=== PATIENT | female | born 1945 | race African-American/Black ===

== ENCOUNTER 2019-09-13 12:33 | Inpatient (IN) | payer OTHER ==
[2019-09-13 13:56] LABS: Absolute Lymphocytes (CBC) 0.7 K/uL (0.7-4.9); Basophils % 0.5 % (0-1.3); Hematocrit 39.5 % (36.0-45.0); Lymphocytes % 25.4 % (15.3-44.8); MPV 8.4 fL (7.6-11.3); RBC Red Blood Cell Count 4.29 M/uL (3.86-4.86)
--- NOTE | 2019-09-13 13:57 | RAD REPORT ---
EXAM DESCRIPTION: CT - Head Brain Wo Cont - 09/13/2019 1:50 pm CLINICAL HISTORY: WEAKNESS Headache, drowsiness COMPARISON: No comparisons TECHNIQUE: All CT scans are performed using dose optimization technique as appropriate and may inclu de automated exposure control or mA/KV adjustment according to patient size. FINDINGS: No intracranial hemorrhage, hydrocephalus or extra-axial fluid collection.Mild generalized brain atrophy is present with mild periventricular and deep white matter chronic microvascular ische angela changes.No areas of brain edema or evidence of midline shift. The paranasal sinuses and mastoids are clear. The calvarium is intact. IMPRESSION: No acute intracranial abnormality.
--- NOTE | 2019-09-13 13:58 | RAD REPORT ---
EXAM DESCRIPTION: RAD - Chest Single View - 09/13/2019 1:52 pm CLINICAL HISTORY: COUGH Chest pain. COMPARISON: CHEST SINGLE VIEW dated 06/04/2008; CT ABD PELVIS W CONTRAST dated 12/01/2013; ABDOMEN W C ONTRAST dated 11/01/2014 FINDINGS: Portable technique limits examination quality. The lungs are emphysematous but grossly clear. The heart is normal in size. No displaced fractures. IMPRESSION: No acute intrathoracic process suspected.
[2019-09-13] MEDS ORDERED: NA CHLORIDE 0.9% 500 ML ONE (14:11)
[2019-09-13] MEDS ORDERED: THIAMINE 200 MG/2 ML INJ ONE (14:11)
[2019-09-13 14:19] LABS: ALT/SGPT 26 U/L (12-78); AST/SGOT 35 U/L (15-37); Albumin 4.1 g/dL (3.4-5.0); Alkaline Phosphatase 66 U/L (45-117); BUN Blood Urea Nitrogen 13 mg/dL (7-18); Bicarbonate 30 mmol/L (21-32); Bilirubin Direct 0.2 mg/dL (0-0.2); Bilirubin Total 0.5 mg/dL (0.2-1.0); Glucose Level 89 mg/dL (74-106); Magnesium 2.3 mg/dL (1.8-2.4); NT PRO-BNP 131 pg/mL (<125); Potassium 3.7 mmol/L (3.5-5.1); Protein, Total 8.1 g/dL (6.4-8.2); Sodium Level 142 mmol/L (136-145); Thyroid Stimulating Hormone 0.643 uIU/mL (0.360-3.740); Troponin (Emerg Dept Use Only) < 0.02 ng/mL (0.0-0.045)
[2019-09-13 14:42] LABS: Protime INR 1.06
--- NOTE | 2019-09-13 15:04 | EDPHYS ---
Physician Documentation [facility] Name: Loreta Tavera Age: 73 yrs Sex: Female : 1945 Arrival Date: 09/13/2019 Time: 12:47 Bed 13 Private MD: ED Physician Eyad Chen HPI: 09/13 13:30 This 73 yrs old Black Female presents to ER via EMS with complaints of ams and confused.sha 13:30 The patient presents with confusion. Onset: The symptoms/episode began/occurred 2 sha day(s) ago. Possible causes: unknown. Associated signs and symptoms: The patient has no apparent associated signs or symptoms. Current symptoms: In the emergency department the patient's symptoms are unchanged from the initial presentation. Patient's baseline: unknown. The patient has not experienced similar symptoms in the past. Historical: - Allergies: 13:16 Unable to Assess; jl7 - Home Meds: 13:16 Unable to obtain [Active]; jl7 - PMHx: 13:16 Unable to obtain; jl7 - PSHx: 13:16 Unable to obtain; jl7 - Immunization history:: Adult Immunizations unknown. - Social history:: Smoking status: unknown. - Family history:: not pertinent. - Ebola Screening: : No symptoms or risks identified at this time. ROS: 13:30 Constitutional: Negative for fever, chills, and weight loss, Eyes: Negative for injury, sha pain, redness, and discharge, ENT: Negative for injury, pain, and discharge, Neck: Negative for injury, pain, and swelling, Cardiovascular: Negative for chest pain, palpitations, and edema, Respiratory: Negative for shortness of breath, cough, wheezing, and pleuritic chest pain, Abdomen/GI: Negative for abdominal pain, nausea, vomiting, diarrhea, and constipation, Back: Negative for injury and pain, : Negative for injury, bleeding, discharge, and swelling, MS/Extremity: Negative for injury and deformity, Skin: Negative for injury, rash, and discoloration, Psych: Negative for depression, anxiety, suicide ideation, homicidal ideation, and hallucinations, Allergy/Immunology: Negative for hives, rash, and allergies, Endocrine: Negative for neck swelling, polydipsia, polyuria, polyphagia, and marked weight changes, Hematologic/Lymphatic: Negative for swollen nodes, abnormal bleeding, and unusual bruising. 13:30 Neuro: Positive for altered mental status, weakness. Exam: 13:30 Constitutional: This is a well developed, well nourished patient who is awake, alert, sha and in no acute distress. Head/Face: Normocephalic, atraumatic. Eyes: Pupils equal round and reactive to light, extra-ocular motions intact. Lids and lashes normal. Conjunctiva and sclera are non-icteric and not injected. Cornea within normal limits. Periorbital areas with no swelling, redness, or edema. ENT: Nares patent. No nasal discharge, no septal abnormalities noted. Tympanic membranes are normal and external auditory canals are clear. Oropharynx with no redness, swelling, or masses, exudates, or evidence of obstruction, uvula midline. Mucous membranes moist. Neck: Trachea midline, no thyromegaly or masses palpated, and no cervical lymphadenopathy. Supple, full range of motion without nuchal rigidity, or vertebral point tenderness. No Meningismus. Chest/axilla: Normal chest wall appearance and motion. Nontender with no deformity. No lesions are appreciated. Cardiovascular: Regular rate and rhythm with a normal S1 and S2. No gallops, murmurs, or rubs. Normal PMI, no JVD. No pulse deficits. Respiratory: Lungs have equal breath sounds bilaterally, clear to auscultation and percussion. No rales, rhonchi or wheezes noted. No increased work of breathing, no retractions or nasal flaring. Abdomen/GI: Soft, non-tender, with normal bowel sounds. No distension or tympany. No guarding or rebound. No evidence of tenderness throughout. Back: No spinal tenderness. No costovertebral tenderness. Full range of motion. Skin: Warm, dry with normal turgor. Normal color with no rashes, no lesions, and no evidence of cellulitis. MS/ Extremity: Pulses equal, no cyanosis. Neurovascular intact. Full, normal range of motion. Psych: Awake, alert, with orientation to person, place and time. Behavior, mood, and affect are within normal limits. 13:30 Neuro: Orientation: to person, Not oriented to place, time, situation, Mentation: appropriate for stated age, no acute changes, responsive to voice Cranial nerves: is grossly normal based on the patient's age, no acute changes, Cerebellar function: is grossly normal, is grossly normal based on the patient's age, no acute changes, Motor: is normal, is grossly normal based on the patient's age, no acute changes, moves all fours, Sensation: no obvious gross deficits, appropriate no acute changes, Gait: not tested. seizure activity, is not displayed by the patient. Vital Signs: 12:50 BP 155 / 96; Pulse 61; Resp 19 S; Temp 97.4(O); Pulse Ox 98% on R/A; Pain 0/10; jl7 17:05 BP 130 / 78; Pulse 52; Resp 16; Temp 97.9(A); Pulse Ox 100% on R/A; mh5 18:45 BP 149 / 75; Pulse 62; Resp 16; Pulse Ox 100% on R/A; mh5 19:15 BP 154 / 78; Pulse 52; Resp 16; Pulse Ox 100% on R/A; jb4 21:00 BP 145 / 80; Pulse 60; Resp 16; Pulse Ox 100% on R/A; jb4 MDM: 12:49 Patient medically screened. [facility] 13:36 Data reviewed: vital signs, nurses notes, lab test result(s), EKG, radiologic studies, [facility] CT scan, plain films. 09/13 13:28 Order name: Basic Metabolic Panel; Complete Time: 15:01 [facility] 09/13 13:28 Order name: CBC with Diff [facility] 09/13 13:28 Order name: LFT's; Complete Time: 15:01 [facility] 09/13 13:28 Order name: Magnesium; Complete Time: 15:01 [facility] 09/13 13:28 Order name: NT PRO-BNP; Complete Time: 15:01 [facility] 09/13 13:28 Order name: PT-INR; Complete Time: 15:01 [facility] 09/13 13:28 Order name: Troponin (emerg Dept Use Only); Complete Time: 15:01 [facility] 09/13 13:28 Order name: UDS; Complete Time: 18:50 sha 09/13 13:28 Order name: TSH; Complete Time: 15:01 [facility] 09/13 13:28 Order name: ETOH Level; Complete Time: 15:01 [facility] 09/13 15:48 Order name: Urine Dipstick--Ancillary (enter results); Complete Time: 18:50 bd 09/13 19:44 Order name: Manual Differential EDMS 09/13 19:46 Order name: CBC with Automated Diff EDMS 09/13 19:46 Order name: CBC with Automated Diff EDMS 09/13 13:28 Order name: XRAY Chest (1 view); Complete Time: 15:01 [facility] 09/13 13:28 Order name: EKG; Complete Time: 13:30 [facility] 09/13 13:28 Order name: CT Head Brain wo Cont; Complete Time: 15:01 [facility] 09/13 14:57 Order name: Diet Soft: Pt is requesting fruit on tray/ applesauce; Complete Time: 14:57 09/13 16:38 Order name: Diet Regular; Complete Time: 16:39 5 09/13 19:46 Order name: CONS Pharmacy Consult EDPR 09/13 19:46 Order name: NPO EDMS 09/13 19:46 Order name: Comprehensive Metabolic Panel EDMS 09/13 19:46 Order name: Comprehensive Metabolic Panel EDMS 09/13 19:46 Order name: Lipid Profile EDPR 09/13 19:47 Order name: Lipid Profile EDPR 09/13 13:28 Order name: Cardiac monitoring; Complete Time: 15:34 [facility] 09/13 13:28 Order name: EKG - Nurse/Tech; Complete Time: 16:37 [facility] 09/13 13:28 Order name: IV Saline Lock; Complete Time: 15:34 [facility] 09/13 13:28 Order name: Labs collected and sent; Complete Time: 15:33 [facility] 09/13 13:28 Order name: O2 Per Protocol; Complete Time: 15:33 [facility] 09/13 13:28 Order name: O2 Sat Monitoring; Complete Time: 15:33 [facility] Administered Medications: 14:56 Drug: NS 0.9% 500 ml Route: IV; Rate: bolus; Site: right antecubital; ss 14:58 Drug: Thiamine 100 mg Route: IV; Rate: bolus; Site: right antecubital; jl7 15:00 Drug: Ativan 1 mg Route: IVP; Site: right antecubital; jl7 15:20 Follow up: Response: No adverse reaction; No change in condition jl7 15:20 Drug: Ativan 1 mg Route: IVP; Site: right antecubital; jl7 15:35 Follow up: Response: No adverse reaction; Marked relief of symptoms jl7 21:04 Not Given (Physician Discretion): Sylvia Bonilla mg IM once jb4 Disposition: 09/13/19 18:53 Hospitalization ordered by Antione Diane for Inpatient Admission. Preliminary diagnosis are Dementia in other diseases classified elsewhere, Altered mental status, unspecified, Weakness. - Bed requested for Telemetry/MedSurg (Inpatient). - Status is Inpatient Admission. jb4 - Condition is Stable. - Problem is new. - Symptoms have improved. UTI on Admission? No Signatures: Dispatcher [employer] EDPR Anuradha Recio RN RN mw Anderson, Corey, MD MD cha Smirch, Shelby, RN RN Yaakov Castellanos RN RN jb4 Manav Hay RN RN jl7 Corrections: (The following items were deleted from the chart) 18:51 15:04 09/13/2019 15:04 Transfer ordered to [facility]. Diagnosis is sha Unspecified psychosis not due to a substance or known physiological condition; Altered mental status, unspecified. Reason for transfer: Higher level of care. Accepting physician is to [facility]. Condition is Fair. Problem is new. Symptoms have improved. sha 19:49 18:53 Hospitalization Ordered by Antione Diane MD for Inpatient Admission. Preliminary diagnosis is Dementia in other diseases classified elsewhere; Altered mental status, unspecified; Weakness. Bed requested for Telemetry/MedSurg (Inpatient). Status is Inpatient Admission. Condition is Stable. Problem is new. Symptoms have improved. UTI on Admission? No. sha 21:04 19:49 09/13/2019 18:53 Hospitalization Ordered by Antione Diane MD for Inpatient jb4 Admission. Preliminary diagnosis is Dementia in other diseases classified elsewhere; Altered mental status, unspecified; Weakness. Bed requested for Telemetry/MedSurg (Inpatient). Status is Inpatient Admission. Condition is Stable. Problem is new. Symptoms have improved. UTI on Admission? No. mw
--- NOTE | 2019-09-13 15:04 | ER ---
Nurse's Notes [facility] Name: Loreta Tavera Age: 73 yrs Sex: Female : 1945 Arrival Date: 09/13/2019 Time: 12:47 Bed 13 Private MD: Diagnosis: Dementia in other diseases classified elsewhere;Altered mental status, unspecified;Weakness Presentation: 09/13 12:50 Presenting complaint: EMS states: Her Apartment complex called APS because pt appeared jl7 to be declining over the last several weeks. Paulina Sampson from [place] [facility] called EMS because pt was walking around with a can of food but was unable to open the can. All of the doors in the pts apartment were locked and the apartment was malodorous, smelled like cat urine and there was a cat in the cat liter box. Pt is oriented to self only, answering with inappropriate answers. Transition of care: patient was not received from another setting of care. Onset of symptoms is unknown. Risk Assessment: Do you want to hurt yourself or someone else? Patient reports no desire to harm self or others. Initial Sepsis Screen: Does the patient meet any 2 criteria? No. Patient's initial sepsis screen is negative. Does the patient have a suspected source of infection? No. Patient's initial sepsis screen is negative. Care prior to arrival: Glucose check: 103. 12:50 Method Of Arrival: EMS: [facility] 12:50 Acuity: STACEY 2 jl7 Triage Assessment: 12:50 General: Appears in no apparent distress. uncomfortable, unkempt, malnourished, jl7 Behavior is cooperative, anxious. Pain: Denies pain. EENT: Oral mucosa is dry. Neuro: Level of Consciousness is awake, alert, obeys commands, confused, Oriented to person, Speech is normal, Facial symmetry appears normal. Cardiovascular: Patient's skin is warm and dry. Respiratory: Airway is patent Respiratory effort is even, unlabored, Respiratory pattern is regular, symmetrical. Derm: Skin is dry, Skin is normal, Skin temperature is warm. Historical: - Allergies: 13:16 Unable to Assess; jl7 - Home Meds: 13:16 Unable to obtain [Active]; jl7 - PMHx: 13:16 Unable to obtain; jl7 - PSHx: 13:16 Unable to obtain; jl7 - Immunization history:: Adult Immunizations unknown. - Social history:: Smoking status: unknown. - Family history:: not pertinent. - Ebola Screening: : No symptoms or risks identified at this time. Screenin:00 Abuse screen: Unable to obtain. Nutritional screening: Unable to obtain, Pt unable to jl7 state when her last meal was. Tuberculosis screening: unable to obtain. Fall Risk Secondary diagnosis (15 points) dementia, IV access (20 points). Ambulatory Aid- None/Bed Rest/Nurse Assist (0 pts). Gait- Normal/Bed Rest/Wheelchair (0 pts) Mental Status- Overestimates/Forgets Limitations (15 pts.). Total Terrell Fall Scale indicates High Risk Score (45 or more points). Fall prevention measures have been instituted. Side Rails Up X 2 Placed Close to Nursing Station Frequent Obs/Assessments Occuring As available patient and family educated on Fall Prevention Program and Strategies. Assessment: 13:06 Reassessment: Paulina Sampson from APS reports pt's apartment complex called her jl7 reporting pt has always been skinny but she is really skinny now. They did an inspection 2 months ago and her apartment looked ok, now there are fruit flies and the place is really bad. APS case # [id number] [phone] [id number] 1 2 2. 13:15 Reassessment: Paulina Sampson with APS [phone]. jl7 15:00 Reassessment: Pt appears agitated and confused, refusing to go into her room, ERD jl7 notified, see MAR for orders. 15:46 Reassessment: Spoke with Elidia Liang, Pts sister who states she is unable to come up ss here at this time as she is taking care of personal business, and is unsure as to when she will be able to, but will try to get ahold of her daughter and send her up here to be with patient. Awaiting phone call back at this time. 17:32 Reassessment: Spoke with sisterElidia who states she will be here within 25 minutes ss after she is finished eating dinner. Sister reports that patient has a history of dementia. 17:44 Reassessment: [facility] staff member at bedside to evaluate patient at bedside at this time. awaiting for family member to arrive. 18:30 Reassessment: Sister Elidia is here at bedside. ss 18:44 Reassessment: Point of contact: [phone]. ss 19:10 Reassessment: Patient appears in no apparent distress at this time. Patient and/or jb4 family updated on plan of care and expected duration. Pain level reassessed. Pt's sister is at the bedside. PT remains alert and oriented to self. Continues to answer questions inappropriately. 19:56 Reassessment: Patient appears in no apparent distress at this time. No changes from jb4 previously documented assessment. Patient and/or family updated on plan of care and expected duration. Pain level reassessed. 21:00 Reassessment: Patient appears in no apparent distress at this time. Patient and/or jb4 family updated on plan of care and expected duration. Pain level reassessed. PT resting in bed with eyes closed, respirations even and unlabored. No s/s of distress noted. Vital Signs: 12:50 BP 155 / 96; Pulse 61; Resp 19 S; Temp 97.4(O); Pulse Ox 98% on R/A; Pain 0/10; jl7 17:05 BP 130 / 78; Pulse 52; Resp 16; Temp 97.9(A); Pulse Ox 100% on R/A; mh5 18:45 BP 149 / 75; Pulse 62; Resp 16; Pulse Ox 100% on R/A; mh5 19:15 BP 154 / 78; Pulse 52; Resp 16; Pulse Ox 100% on R/A; jb4 21:00 BP 145 / 80; Pulse 60; Resp 16; Pulse Ox 100% on R/A; jb4 ED Course: 12:47 Patient arrived in ED. jl7 12:49 Eyad Chen MD is Attending Physician. [facility] 12:50 Arm band placed on right wrist. jl7 12:55 Triage completed. jl7 13:00 Safety checks: Items removed: yes. Door open/sign placed on door: yes. Family/friend mh5 present: no. Sitter present: Yes. 13:00 Patient has correct armband on for positive identification. Placed in gown. Bed in low mh5 position. Side rails up X2. Warm blanket given. 13:06 Manav Hay RN is Primary Nurse. 7 13:15 Safety checks: Items removed: yes. Door open/sign placed on door: yes. Family/friend mh5 present: no. Sitter present: Yes. 13:30 Safety checks: Items removed: yes. Door open/sign placed on door: yes. Family/friend mh5 present: no. Sitter present: Yes. 13:41 Inserted saline lock: 22 gauge in right antecubital area, using aseptic technique. ss ,using aseptic technique. Insertion by TOAN Velasquez Blood collected. 13:45 Safety checks: Items removed: yes. Door open/sign placed on door: yes. Family/friend mh5 present: no. Sitter present: Yes. 13:51 CT Head Brain wo Cont In Process Unspecified. EDMS 13:53 XRAY Chest (1 view) In Process Unspecified. EDMS 14:00 Safety checks: Items removed: yes. Door open/sign placed on door: yes. Family/friend mh5 present: no. Sitter present: Yes. 14:15 Safety checks: Items removed: yes. Door open/sign placed on door: yes. Family/friend mh5 present: no. Sitter present: Yes. 14:30 Safety checks: Items removed: yes. Door open/sign placed on door: yes. Family/friend mh5 present: no. Sitter present: Yes. 14:45 Safety checks: Items removed: yes. Door open/sign placed on door: yes. Family/friend mh5 present: no. Sitter present: Yes. 15:00 Safety checks: Items removed: yes. Door open/sign placed on door: yes. Family/friend mh5 present: no. Sitter present: Yes. 15:15 Safety checks: Items removed: yes. Door open/sign placed on door: yes. Family/friend mh5 present: no. Sitter present: Yes. 15:30 Safety checks: Items removed: yes. Door open/sign placed on door: yes. Family/friend mh5 present: no. Sitter present: Yes. 15:45 Safety checks: Items removed: yes. Door open/sign placed on door: yes. Family/friend mh5 present: yes. Sitter present: Yes. Diet: Patient given snack. 16:00 Safety checks: Items removed: yes. Door open/sign placed on door: yes. Family/friend mh5 present: no. Sitter present: Yes. 16:15 Safety checks: Items removed: yes. Door open/sign placed on door: yes. Family/friend mh5 present: no. Sitter present: Yes. 16:30 Safety checks: Items removed: yes. Door open/sign placed on door: yes. Family/friend mh5 present: no. Sitter present: Yes. 16:35 Urine collected: straight cath specimen, clear, EKG done. Initial lab(s) drawn, by ED 5 staff, sent to lab. Inserted saline lock: 22 gauge in right upper arm, using aseptic technique. Blood collected. 16:45 Safety checks: Items removed: yes. Door open/sign placed on door: yes. Family/friend mh5 present: no. Sitter present: Yes. 17:08 faxed chart to [facility]. 18:51 Antione Diane MD is Hospitalizing Provider. [facility] 21:00 No provider procedures requiring assistance completed. Patient admitted, IV remains in jb4 place. Administered Medications: 14:56 Drug: NS 0.9% 500 ml Route: IV; Rate: bolus; Site: right antecubital; ss 14:58 Drug: Thiamine 100 mg Route: IV; Rate: bolus; Site: right antecubital; jl7 15:00 Drug: Ativan 1 mg Route: IVP; Site: right antecubital; jl7 15:20 Follow up: Response: No adverse reaction; No change in condition jl7 15:20 Drug: Ativan 1 mg Route: IVP; Site: right antecubital; jl7 15:35 Follow up: Response: No adverse reaction; Marked relief of symptoms jl7 21:04 Not Given (Physician Discretion): Geodon 20 mg IM once jb4 Outcome: 15:04 ER care complete, transfer ordered by . sha 18:53 Decision to Hospitalize by Provider. [facility] 21:00 Admitted to Tele accompanied by tech, via stretcher, room 402, with chart, Report jb4 called to TOAN Ponce 21:00 Condition: stable 21:00 Discharge instructions given to family, Instructed on the need for admit, Demonstrated understanding of instructions. 21:04 Patient left the ED. jb4 Signatures: Dispatcher [employer] EDMS Cinda Figueredo Corey, MD MD cha Smirch, Shelby, RN RN Yaakov Crockett RN RN jb Tiffany Herrera Jahala, RN RN jl7 Corrections: (The following items were deleted from the chart) 17:07 17:05 BP 130 / 78; Pulse 52bpm; Resp 16bpm; Pulse Ox 100% RA; Temp 99F; 5 5
[2019-09-13] MEDS ORDERED: LORazepam 2 MG/ML VIAL ONE (15:06)
[2019-09-13 15:36] LABS: Barbiturates NEGATIVE (NEGATIVE); Benzodiazepines NEGATIVE (NEGATIVE); Cocaine NEGATIVE (NEGATIVE); METHAMPHETAM NEGATIVE (NEGATIVE); Methadone NEGATIVE (NEGATIVE); Opiates NEGATIVE (NEGATIVE); Phencyclidine NEGATIVE (NEGATIVE); THC Cannibis NEGATIVE (NEGATIVE)
[2019-09-13 16:09] LABS: Urine Blood NEGATIVE (NEG); Urine Glucose NEGATIVE (NEG); Urine Protein NEGATIVE (NEG); Urine pH 6.5 (5.0-7.0)
[2019-09-13] MEDS ORDERED: MORPHINE 2 MG/ML SYR IV PRN (19:42)
[2019-09-13] MEDS ORDERED: ACETAMINOPHEN 500 MG TAB PO PRN (19:42)
[2019-09-13] MEDS ORDERED: ONDANSETRON 4 MG/2 ML VIAL IV PRN (19:42)
[2019-09-13 19:44] LABS: Blood Morphology Comment NOT SEEN (NOT SEEN); Platelet Estimate ADEQ
[2019-09-13] MEDS: NA CHLORIDE 0.9% 1,000 ML IV SCH (21:26)
[2019-09-13 23:08] VITALS: BMI 18.4
[2019-09-14 04:18] LABS: Absolute Lymphocytes (CBC) 1.1 K/uL (0.7-4.9); Basophils % 0.7 % (0-1.3); Hematocrit 37.1 % (36.0-45.0); Lymphocytes % 46.9 % (15.3-44.8); MPV 8.5 fL (7.6-11.3); RBC Red Blood Cell Count 4.02 M/uL (3.86-4.86)
[2019-09-14 04:59] LABS: ALT/SGPT 22 U/L (12-78); AST/SGOT 29 U/L (15-37); Albumin 3.3 g/dL (3.4-5.0); Alkaline Phosphatase 55 U/L (45-117); BUN Blood Urea Nitrogen 10 mg/dL (7-18); Bicarbonate 29 mmol/L (21-32); Bilirubin Total 0.6 mg/dL (0.2-1.0); Glucose Level 69 mg/dL (74-106); HDL Cholesterol 71 mg/dL (40-60); LDL Cholesterol, Calculated 84 (<130); Potassium 3.7 mmol/L (3.5-5.1); Protein, Total 6.6 g/dL (6.4-8.2); Sodium Level 143 mmol/L (136-145)
[2019-09-14] MEDS ORDERED: D50W 25 GM/50 ML SYRINGE/VIAL IV ONE (06:06)
--- NOTE | 2019-09-14 06:20 | EKG ---
Test Date: 2019-09-13 Test Time: 16:29:41 [employer] Sponger: KEISHA MEASUREMENT RESULTS: Intervals: Rate: 54 GA: 154 QRSD: 96 QT: 434 QTc: 411 Gable: P: 60 GA: 154 QRS: -27 T: 55 INTERPRETIVE STATEMENTS: Sinus bradycardia with occasional premature ventricular complexes Low voltage QRS Borderline ECG Compared to ECG 06/05/2008 05:52:36 Ventricular premature complex(es) now present Low QRS voltage now present Electronically Signed On 09-14-19 06:19:55 HOME APPRAISER by Jono Farrell
[2019-09-14] MEDS ORDERED: PNEUMOCOCCAL VACCINE 0.5 ML IMVAC ONE (08:00)
[2019-09-14] MEDS ORDERED: INFLUENZA VACCINE (for 3y+) 0.5 ML DOSE IMVAC ONE (08:00)
[2019-09-14] MEDS ORDERED: ALBUTEROL 2.5 MG/3 ML NEB SOL ONE (08:52)
[2019-09-14] MEDS: NA CHLORIDE 0.9% 1,000 ML IV SCH (09:20)
[2019-09-14] MEDS ORDERED: LORazepam 2 MG/ML VIAL IV ONE (11:36)
[2019-09-14] MEDS ORDERED: LORazepam 2 MG/ML VIAL IM ONE (11:53)
[2019-09-14] MEDS ORDERED: QUETIAPINE 25 MG TAB PO SCH (14:00)
[2019-09-14] MEDS: QUETIAPINE 25 MG TAB PO SCH ×2 (15:35→20:08)
--- NOTE | 2019-09-14 15:53 | P.HP ---
Certification for Inpatient Patient admitted to: Observation With expected LOS: <2 Midnights Patient will require the following post-hospital care: None Practitioner: I am a practitioner with admitting privileges, knowledge of patient current condition, hospital course, and medical plan of care. Services: Services provided to patient in accordance with Admission requirements found in Title 42 Section 412.3 of the Code of Federal Regulations Patient History Date of Service: 09/13/19 Reason for admission: Altered mental status, Alzheimer's dementia. History of Present Illness: Patient is a 73yo who was admitted to the hospital with altered mental status. Patient has been confused. She was apparently walking around the neighborhood alone. Patient house was cluttered and EMS stated that it was very filthy. Adult protective service was notified. They found her kitten in her litter box. Patient has severe Alzheimer's dementia. Patient will be admitted for observation. She will need to be at a locked unit. Allergies No Known Allergies Allergy (Unverified 09/13/19 20:07) Home Medications: Cyanocobalamin (Vitamin B-12) [B-12] 3,000 mcg SL DAILY 09/13/19 Donepezil HCl 10 mg PO DAILY 09/13/19 Memantine HCl 10 mg PO BID 09/13/19 - Past Medical/Surgical History Has patient received pneumonia vaccine in the past: No Diabetic: No -: Alzheimer's dementia Past Surgical History: Patient denies surgical history - Family History Father Family History: Reviewed- Non-Contributory - Social History Smoking Status: Unknown if ever smoked Alcohol use: No CD- Drugs: No Caffeine use: No Place of Residence: Home Review of Systems 10-point ROS is otherwise unremarkable Physical Examination - Vital Signs Temperature: 97.0 F Blood Pressure: 138/68 Pulse: 80 Respirations: 16 Pulse Ox (%): 99 - Physical Exam General: Alert, In no apparent distress, Oriented x3 HEENT: Atraumatic, PERRLA, Mucous membr. moist/pink, EOMI, Sclerae nonicteric Neck: Supple, 2+ carotid pulse no bruit, No LAD, Without JVD or thyroid abnormality Respiratory: Clear to auscultation bilaterally, Normal air movement Cardiovascular: Regular rate/rhythm, Normal S1 S2, No murmurs Gastrointestinal: Normal bowel sounds, Soft and benign, Non-distended, No tenderness Musculoskeletal: No clubbing, No swelling, No tenderness Integumentary: No rashes Neurological: Normal gait, Normal speech, Normal strength at 5/5 x4 extr, Normal tone, Sensation intact, Cranial nerves 3-12 intact, Normal affect Lymphatics: No axilla or inguinal lymphadenopathy - Studies Laboratory Data (last 24 hrs) 09/13/19 13:40: WBC 2.6 L, Hgb 13.2, Hct 39.5, Plt Count 179 Assessment & Plan - Problems (Diagnosis) (1) Altered mental status Current Visit: Yes Status: Acute (2) Alzheimer's dementia Current Visit: Yes Status: Acute - Plan Plan: 1. IVFs 2. SOCIAL SERVICE CONSULT 3. PT/SPEECH THERAPY 4. MONITOR LABS 5. NEURO AND PSYCH EVAL 6. MONITOR LABS CLOSELY 7. INFECTIOUS DISEASE EVALUATION Discharge Plan: Home Plan to discharge in: 48 Hours - Advance Directives Does patient have a Living Will: No Does patient have a Durable POA for Healthcare: No - Code Status/Comfort Care Code Status Assessed: Yes Code Status: Full Code Critical Care: No Time Spent Managing PTS Care (In Minutes): 45
[2019-09-14] MEDS: DONEPEZIL HCL 5 MG TAB PO SCH (20:05)
[2019-09-14] MEDS: MEMANTINE HCL 10 MG TABLET PO SCH (20:06)
[2019-09-15] MEDS: QUETIAPINE 25 MG TAB PO SCH ×4 (08:54→20:10)
[2019-09-15] MEDS: MEMANTINE HCL 10 MG TABLET PO SCH ×2 (08:54→20:09)
[2019-09-15] MEDS: DONEPEZIL HCL 5 MG TAB PO SCH (20:09)
[2019-09-15] MEDS: ENSURE ENLIVE 237 ML CAN PO SCH (20:10)
--- NOTE | 2019-09-15 22:10 | CON ---
Reason For Consultation: Consultation called because of altered mental status and Alzheimer disease. History Of Present Illness: Ms. Tavera is a 73-year-old patient whom I see in the clinic for dementia that is of mixed etiology including vascular and Alzheimer disease. She was last seen in clinic [facility] a year ago, August 26, 2019. The patient was apparently found wandering in her neighborhood [place], was determined to be cluttered and filthy and a kitten was found and the litter box. She was brou ght in and admitted on the September 13. Head CT scan identified no acute intracranial abnormalities. There was mild generalized brain atrophy and no particular pattern suggestive of advanced Alzheimer disease though. Her blood work revealed a low white cell count of 2.6, otherwise unremarkable. It s hould be noted again, absolute neutrophils were also low at 1.7, but hemoglobin and hematocrit were n ormal. Basic metabolic panel also unremarkable. Her thyroid function was normal. Liver function st udies normal. Kidney function normal. Urinalysis was normal and the urine toxicology screen was als o unremarkable. Since her admission, physically, she has no focal deficits to face, arm, leg, but co gnitively very disoriented and unable to follow simple instructions. Past Medical History: Advanced Alzheimer disease. Allergies: NO KNOWN DRUG ALLERGIES. Family History: Diabetes in mother. Heart attack in father and mother and high blood pressure in he r father. Medications: At home were Aricept 10 mg twice daily, Namenda 10 mg twice daily, vitamin B12 of 3000 mcg sublingual daily. Social History: The patient lives alone. However, she really is unable to do so from this point for tavarez. No alcohol, tobacco, or IV drug use. Review of Systems: Not reliable. Physical Examination: Vital Signs: Blood pressure 132/65, pulse 65, respiratory rate 16, temperature 97.8, oxygen saturati on 99% on room air. Weight 101 pounds, height 5 feet 2 inches, BMI 18.5. General: Ms. Tavera is sitting in chair with a table in front, eating just a little bite of lunch. HEENT: She is normocephalic and atraumatic. Sclerae anicteric. Oropharynx is pink and moist. Neck: Supple. Chest: Clear. Heart: Regular. Extremities: Show no edema or cyanosis. Neurological: She is alert and oriented to person but not to place, situation, or time. She is unab le to follow simple commands such as show up thumbs up or victory sign. She holds the whole hand up, but looks confused. She is disoriented to place as well as date, day of the month and the week, and location. Unable to follow any instructions to perform a cognitive assessment test meaningfully. Alphonse lange in clinic, she had gotten 0/4 on clock draw test for the last 2 years. She was normally brought in by a friend. In terms of cranial nerves, there are no obvious cranial nerve deficits. Motor exa mination, she uses both sides equally well in the upper and lower extremities. Sensory exam responds equally well to light touch in the arms and legs. Coordination, holding her utensils for eating erik ears normal and she moves both sides equally well. Gait, she has good stance, stride, and arm swing. Assessment: Ms. Tavera is a 73-year-old with end-stage dementia, possibly mixed etiology including va scular dementia and Alzheimer disease. Her dementia workup was otherwise unremarkable except for mil dly low vitamin D levels. Plan: She will require placement in a facility with memory care unit for 24 hour observation for saf ety awareness and to prevent her from harming self and perhaps others. She may continue the Namenda and Aricept, although at this stage of dementia, they are unlikely to be of any benefit. May also co ntinue with vitamin supplementation and should have nutrition with increased protein content. Patient may be discharged to a facility once a suitable facility is identified. DELANEY Voice ID: [id number] Report ID: [id number]
--- NOTE | 2019-09-16 06:43 | P.PN ---
Subjective Date of Service: 09/14/19 Chief Complaint: Altered mental status, Alzheimer's dementia. Subjective: No new changes, No C/O voiced, Demented Review of Systems 10-point ROS is otherwise unremarkable Physical Examination - Vital Signs Temperature: 98.2 F Blood Pressure: 141/79 Pulse: 80 Respirations: 16 Pulse Ox (%): 100 - Physical Exam General: Alert, In no apparent distress, Demented Respiratory: Clear to auscultation bilaterally, Normal air movement Cardiovascular: Regular rate/rhythm, Normal S1 S2 Gastrointestinal: Normal bowel sounds, Soft and benign, Non-distended Musculoskeletal: No clubbing, No swelling Neurological: Normal gait, Normal speech, Normal strength at 5/5 x4 extr, Normal tone, Sensation intact, Cranial nerves 3-12 intact, Dementia Assessment & Plan - Problems (Diagnosis) (1) Altered mental status Current Visit: Yes Status: Acute (2) Alzheimer's dementia Current Visit: Yes Status: Acute - Plan Plan: 1. Hep-Lock IV 2. awaiting social service assistance in placement 3. neurology and psychiatric evaluation 4. GI and DVT prophylaxis Discharge Plan: Home Plan to discharge in: Greater than 2 days - Advance Directives Does patient have a Living Will: No Does patient have a Durable POA for Healthcare: No - Code Status/Comfort Care Code Status: Full Code Critical Care: No Time Spent Managing PTS Care (In Minutes): 30
--- NOTE | 2019-09-16 06:44 | P.PN ---
Subjective Date of Service: 09/15/19 Subjective: No new changes, Demented Review of Systems 10-point ROS is otherwise unremarkable Physical Examination - Vital Signs Temperature: 98.2 F Blood Pressure: 141/79 Pulse: 80 Respirations: 16 Pulse Ox (%): 100 - Physical Exam General: Alert, In no apparent distress, Demented Respiratory: Clear to auscultation bilaterally, Normal air movement Cardiovascular: Regular rate/rhythm, Normal S1 S2 Gastrointestinal: Normal bowel sounds, Hypoactive, Soft and benign, Non- distended Musculoskeletal: No clubbing, No swelling Neurological: Dementia Assessment & Plan - Problems (Diagnosis) (1) Altered mental status Current Visit: Yes Status: Acute (2) Alzheimer's dementia Current Visit: Yes Status: Acute - Plan Plan: Continue with current plan of care as we await placement 1. Hep-Lock IV 2. awaiting social service assistance in placement 3. neurology and psychiatric evaluation 4. GI and DVT prophylaxis Discharge Plan: Home Plan to discharge in: 72 Hours - Advance Directives Does patient have a Living Will: No Does patient have a Durable POA for Healthcare: No - Code Status/Comfort Care Code Status: Full Code Critical Care: No Time Spent Managing PTS Care (In Minutes): 30
[2019-09-16] MEDS: MEMANTINE HCL 10 MG TABLET PO SCH ×2 (08:32→20:28)
[2019-09-16] MEDS: ENSURE ENLIVE 237 ML CAN PO SCH ×2 (08:33→20:28)
[2019-09-16] MEDS: QUETIAPINE 25 MG TAB PO SCH ×3 (08:34→20:28)
--- NOTE | 2019-09-16 11:48 | P.PN ---
Subjective Date of Service: 09/16/19 Chief Complaint: Altered mental status, Alzheimer's dementia. Subjective: No new changes (- seen -) seen , no new changes -still pleasantly demented Review of Systems 10-point ROS is otherwise unremarkable Physical Examination - Vital Signs Temperature: 98.3 F Blood Pressure: 145/91 Pulse: 89 Respirations: 18 Pulse Ox (%): 98 - Physical Exam General: Alert, In no apparent distress, Demented HEENT: Atraumatic, Normocephalic Neck: Supple, 2+ carotid pulse no bruit Respiratory: Clear to auscultation bilaterally, Normal air movement Cardiovascular: No edema, Normal pulses Gastrointestinal: Normal bowel sounds, No tenderness Musculoskeletal: No clubbing, No swelling Neurological: Normal gait, Normal speech Rectal: Normal, No induration - Studies Medications List Reviewed: Yes Assessment & Plan - Problems (Diagnosis) (1) Altered mental status Current Visit: Yes Status: Acute (2) Alzheimer's dementia Current Visit: Yes Status: Acute - Code Status/Comfort Care Code Status Assessed: Yes Code Status: Full Code Physician Review Additional Text: - doing well , no new changes -awaiting placement - c/w ambulation prn -c/w regular diet
[2019-09-16] MEDS: DONEPEZIL HCL 5 MG TAB PO SCH (20:28)
[2019-09-17] MEDS: QUETIAPINE 25 MG TAB PO SCH ×3 (08:35→20:12)
[2019-09-17] MEDS: MEMANTINE HCL 10 MG TABLET PO SCH ×2 (08:35→20:11)
[2019-09-17] MEDS: ENSURE ENLIVE 237 ML CAN PO SCH ×2 (08:36→20:12)
[2019-09-17] MEDS ORDERED: HYDRALAZINE HCL 20 MG/ML VIAL IV PRN (12:21)
--- NOTE | 2019-09-17 12:27 | P.PN ---
Subjective Date of Service: 09/17/19 Chief Complaint: Altered mental status, Alzheimer's dementia. Subjective: Demented (confused , ambulating hallway , staff report refusing breakfast this am - pt very confused and unable to give history) seen , no new changes -still pleasantly demented Review of Systems is unable to be obtained Physical Examination - Vital Signs Temperature: 97.6 F Blood Pressure: 154/102 Pulse: 64 Respirations: 18 Pulse Ox (%): 100 - Physical Exam General: Alert, In no apparent distress, Demented HEENT: Atraumatic, PERRLA, Mucous membr. moist/pink Neck: JVD not distended, No Thyromegaly Respiratory: Clear to auscultation bilaterally, Normal air movement Gastrointestinal: Normal bowel sounds, Soft and benign, No tenderness Neurological: Normal gait, Abnormal speech (slowed speech and not congruent) - Studies Laboratory Last Values WBC 2.4 K/uL (4.3-10.9) L 09/14/19 03:39 RBC 4.02 M/uL (3.86-4.86) 09/14/19 03:39 Hgb 12.3 g/dL (12.0-15.0) 09/14/19 03:39 Hct 37.1 % (36.0-45.0) 09/14/19 03:39 MCV 92.3 fL (80-100) 09/14/19 03:39 MCH 30.5 pg (27.0-35.0) 09/14/19 03:39 MCHC 33.0 g/dL (32.0-36.0) 09/14/19 03:39 RDW 13.8 % (12.1-15.2) 09/14/19 03:39 Plt Count 156 K/uL (152-406) 09/14/19 03:39 MPV 8.5 fL (7.6-11.3) 09/14/19 03:39 Neutrophils % 40.4 % (41.7-73.7) L 09/14/19 03:39 Lymphocytes % 46.9 % (15.3-44.8) H 09/14/19 03:39 Monocytes % 10.7 % (3.3-12.3) 09/14/19 03:39 Eosinophils % 1.3 % (0-4.4) 09/14/19 03:39 Basophils % 0.7 % (0-1.3) 09/14/19 03:39 Absolute Neutrophils 1.0 K/uL (1.8-8.0) L 09/14/19 03:39 Segmented Neutrophils 60 % (40-80) 09/13/19 13:40 Absolute Lymphocytes 1.1 K/uL (0.7-4.9) 09/14/19 03:39 Lymphocytes 29 % (15-42) 09/13/19 13:40 Monocytes 11 % (0-10) H 09/13/19 13:40 Absolute Monocytes 0.3 K/uL (0.1-1.3) 09/14/19 03:39 Absolute Eosinophils 0.0 K/uL (0-0.5) 09/14/19 03:39 Absolute Basophils 0.0 K/uL (0-0.5) 09/14/19 03:39 Morphology Comment Not seen (NOT SEEN) 09/13/19 13:40 PT 12.5 SECONDS (9.5-12.5) 09/13/19 13:40 INR 1.06 09/13/19 13:40 Sodium 143 mmol/L (136-145) 09/14/19 03:39 Potassium 3.7 mmol/L (3.5-5.1) 09/14/19 03:39 Chloride 110 mmol/L (98-107) H 09/14/19 03:39 Carbon Dioxide 29 mmol/L (21-32) 09/14/19 03:39 BUN 10 mg/dL (7-18) 09/14/19 03:39 Creatinine 0.55 mg/dL (0.55-1.3) 09/14/19 03:39 Estimated GFR > 90 mL/min (=/>90) 09/14/19 03:39 Glucose 69 mg/dL (74-106) L 09/14/19 03:39 POC Glucose 100 mg/dl (65-120) 09/14/19 08:11 Calcium 8.4 mg/dL (8.5-10.1) L 09/14/19 03:39 Magnesium 2.3 mg/dL (1.8-2.4) 09/13/19 13:40 Total Bilirubin 0.6 mg/dL (0.2-1.0) 09/14/19 03:39 Direct Bilirubin 0.2 mg/dL (0-0.2) 09/13/19 13:40 AST 29 U/L (15-37) 09/14/19 03:39 ALT 22 U/L (12-78) 09/14/19 03:39 Alkaline Phosphatase 55 U/L (45-117) 09/14/19 03:39 Rapid Troponin I < 0.02 ng/mL (0.0-0.045) 09/13/19 13:40 NT-Pro-B Natriuret Pep 131 pg/mL (<125) H 09/13/19 13:40 Serum Total Protein 6.6 g/dL (6.4-8.2) 09/14/19 03:39 Albumin 3.3 g/dL (3.4-5.0) L 09/14/19 03:39 Globulin 3.3 g/dL (2.3-3.5) D 09/14/19 03:39 Albumin/Globulin Ratio 1.0 (1.1-1.8) L 09/14/19 03:39 Triglycerides 64 mg/dL (<150) 09/14/19 03:39 Cholesterol 168 mg/dL (<200) 09/14/19 03:39 LDL Cholesterol, Calc 84 (<130) 09/14/19 03:39 HDL Cholesterol 71 mg/dL (40-60) H 09/14/19 03:39 Cholesterol/HDL Ratio 2.37 09/14/19 03:39 TSH 0.643 uIU/mL (0.360-3.740) 09/13/19 13:40 Urine pH 6.5 (5.0-7.0) 09/13/19 Unknown Ur Specific [place] 1.020 (1.005-1.030) 09/13/19 Unknown Urine Ketones Negative (NEG) 09/13/19 Unknown Urine Blood Negative (NEG) 09/13/19 Unknown Urine Nitrite Negative (NEG) 09/13/19 Unknown Ur Leukocyte Esterase Negative (NEG) 09/13/19 Unknown Urine Glucose Negative (NEG) 09/13/19 Unknown Urine Total Protein Negative (NEG) 09/13/19 Unknown Opiates Screen Negative (NEGATIVE) 09/13/19 14:45 Methadone Screen Negative (NEGATIVE) 09/13/19 14:45 Ur Barbiturates Screen Negative (NEGATIVE) 09/13/19 14:45 Ur Phencyclidine Scrn Negative (NEGATIVE) 09/13/19 14:45 Amphetamines Screen Negative (NEGATIVE) 09/13/19 14:45 Benzodiazepines Screen Negative (NEGATIVE) 09/13/19 14:45 Cocaine Screen Negative (NEGATIVE) 09/13/19 14:45 Ur THC Screen Negative (NEGATIVE) 09/13/19 14:45 Plasma/Serum Alcohol < 3 mg/dL (<3) 09/13/19 13:40 Medications List Reviewed: Yes Assessment & Plan - Problems (Diagnosis) (1) Altered mental status Current Visit: Yes Status: Acute (2) Alzheimer's dementia Current Visit: Yes Status: Acute Discharge Plan: Retirement Plan to discharge in: Unknown Physician Review: Patient Assessed, Agree with Above Assessment and Plan Physician Review Additional Text: Dementia - still wandering around hospital -c/w 1:1 observation -c/w current regime with namenda/aricept /seroquel 12.5 tid -consider increase seroquel at pm to aid sleep # HTN -BP has been running high since admission - will start norvasc now -IV hydralazine prn # DVT prop - ambulation and sc hep -awaiting placement
[2019-09-17] MEDS: AMLODIPINE 5 MG TAB PO SCH (13:41)
[2019-09-17] MEDS: DONEPEZIL HCL 5 MG TAB PO SCH (20:11)
[2019-09-18 04:13] LABS: Absolute Lymphocytes (CBC) 1.1 K/uL (0.7-4.9); Basophils % 0.6 % (0-1.3); Hematocrit 40.2 % (36.0-45.0); Lymphocytes % 37.4 % (15.3-44.8); MPV 8.6 fL (7.6-11.3); RBC Red Blood Cell Count 4.28 M/uL (3.86-4.86)
[2019-09-18 04:24] LABS: ALT/SGPT 23 U/L (12-78); AST/SGOT 26 U/L (15-37); Albumin 3.6 g/dL (3.4-5.0); Alkaline Phosphatase 63 U/L (45-117); BUN Blood Urea Nitrogen 16 mg/dL (7-18); Bicarbonate 32 mmol/L (21-32); Bilirubin Total 0.5 mg/dL (0.2-1.0); Glucose Level 97 mg/dL (74-106); Protein, Total 7.3 g/dL (6.4-8.2); Sodium Level 142 mmol/L (136-145)
[2019-09-18] MEDS: ENSURE ENLIVE 237 ML CAN PO SCH ×2 (08:07→20:23)
[2019-09-18] MEDS: AMLODIPINE 5 MG TAB PO SCH (08:07)
[2019-09-18] MEDS: QUETIAPINE 25 MG TAB PO SCH ×2 (08:08→20:23)
[2019-09-18] MEDS: MEMANTINE HCL 10 MG TABLET PO SCH ×2 (08:08→20:23)
--- NOTE | 2019-09-18 11:04 | P.PN ---
Subjective Date of Service: 09/18/19 Chief Complaint: Altered mental status, Alzheimer's dementia. Subjective: No new changes, Tolerating diet (refusing to talk to me today , still pacing the hallway -staff report good dinner and 505 lunch yesterday , also able to take meds if concealed in meals) seen , no new changes -still pleasantly demented Review of Systems is unable to be obtained Physical Examination - Vital Signs Temperature: 97.3 F Blood Pressure: 151/93 Pulse: 79 Respirations: 17 Pulse Ox (%): 100 - Physical Exam General: Alert, In no apparent distress, Demented HEENT: Normocephalic, PERRLA Neurological: Normal gait Other Physical/Emotional Findings: repeatedly moving away from me , refusing to talk . physical exam limited - Studies Laboratory Last Values WBC 2.8 K/uL (4.3-10.9) L D 09/18/19 03:48 RBC 4.28 M/uL (3.86-4.86) 09/18/19 03:48 Hgb 12.8 g/dL (12.0-15.0) 09/18/19 03:48 Hct 40.2 % (36.0-45.0) 09/18/19 03:48 MCV 93.9 fL (80-100) 09/18/19 03:48 MCH 29.9 pg (27.0-35.0) 09/18/19 03:48 MCHC 31.9 g/dL (32.0-36.0) L 09/18/19 03:48 RDW 13.8 % (12.1-15.2) 09/18/19 03:48 Plt Count 152 K/uL (152-406) 09/18/19 03:48 MPV 8.6 fL (7.6-11.3) 09/18/19 03:48 Neutrophils % 51.1 % (41.7-73.7) 09/18/19 03:48 Lymphocytes % 37.4 % (15.3-44.8) 09/18/19 03:48 Monocytes % 10.1 % (3.3-12.3) 09/18/19 03:48 Eosinophils % 0.8 % (0-4.4) 09/18/19 03:48 Basophils % 0.6 % (0-1.3) 09/18/19 03:48 Absolute Neutrophils 1.5 K/uL (1.8-8.0) L 09/18/19 03:48 Segmented Neutrophils 60 % (40-80) 09/13/19 13:40 Absolute Lymphocytes 1.1 K/uL (0.7-4.9) 09/18/19 03:48 Lymphocytes 29 % (15-42) 09/13/19 13:40 Monocytes 11 % (0-10) H 09/13/19 13:40 Absolute Monocytes 0.3 K/uL (0.1-1.3) 09/18/19 03:48 Absolute Eosinophils 0.0 K/uL (0-0.5) 09/18/19 03:48 Absolute Basophils 0.0 K/uL (0-0.5) 09/18/19 03:48 Morphology Comment Not seen (NOT SEEN) 09/13/19 13:40 PT 12.5 SECONDS (9.5-12.5) 09/13/19 13:40 INR 1.06 09/13/19 13:40 Sodium 142 mmol/L (136-145) 09/18/19 03:48 Potassium 4.0 mmol/L (3.5-5.1) 09/18/19 03:48 Chloride 105 mmol/L (98-107) 09/18/19 03:48 Carbon Dioxide 32 mmol/L (21-32) 09/18/19 03:48 BUN 16 mg/dL (7-18) 09/18/19 03:48 Creatinine 0.63 mg/dL (0.55-1.3) 09/18/19 03:48 Estimated GFR > 90 mL/min (=/>90) 09/18/19 03:48 Glucose 97 mg/dL (74-106) 09/18/19 03:48 POC Glucose 100 mg/dl (65-120) 09/14/19 08:11 Calcium 9.3 mg/dL (8.5-10.1) 09/18/19 03:48 Magnesium 2.3 mg/dL (1.8-2.4) 09/13/19 13:40 Total Bilirubin 0.5 mg/dL (0.2-1.0) 09/18/19 03:48 Direct Bilirubin 0.2 mg/dL (0-0.2) 09/13/19 13:40 AST 26 U/L (15-37) 09/18/19 03:48 ALT 23 U/L (12-78) 09/18/19 03:48 Alkaline Phosphatase 63 U/L (45-117) 09/18/19 03:48 Rapid Troponin I < 0.02 ng/mL (0.0-0.045) 09/13/19 13:40 NT-Pro-B Natriuret Pep 131 pg/mL (<125) H 09/13/19 13:40 Serum Total Protein 7.3 g/dL (6.4-8.2) 09/18/19 03:48 Albumin 3.6 g/dL (3.4-5.0) 09/18/19 03:48 Globulin 3.7 g/dL (2.3-3.5) H 09/18/19 03:48 Albumin/Globulin Ratio 1.0 (1.1-1.8) L 09/18/19 03:48 Triglycerides 64 mg/dL (<150) 09/14/19 03:39 Cholesterol 168 mg/dL (<200) 09/14/19 03:39 LDL Cholesterol, Calc 84 (<130) 09/14/19 03:39 HDL Cholesterol 71 mg/dL (40-60) H 09/14/19 03:39 Cholesterol/HDL Ratio 2.37 09/14/19 03:39 TSH 0.643 uIU/mL (0.360-3.740) 09/13/19 13:40 Urine pH 6.5 (5.0-7.0) 09/13/19 Unknown Ur Specific [place] 1.020 (1.005-1.030) 09/13/19 Unknown Urine Ketones Negative (NEG) 09/13/19 Unknown Urine Blood Negative (NEG) 09/13/19 Unknown Urine Nitrite Negative (NEG) 09/13/19 Unknown Ur Leukocyte Esterase Negative (NEG) 09/13/19 Unknown Urine Glucose Negative (NEG) 09/13/19 Unknown Urine Total Protein Negative (NEG) 09/13/19 Unknown Opiates Screen Negative (NEGATIVE) 09/13/19 14:45 Methadone Screen Negative (NEGATIVE) 09/13/19 14:45 Ur Barbiturates Screen Negative (NEGATIVE) 09/13/19 14:45 Ur Phencyclidine Scrn Negative (NEGATIVE) 09/13/19 14:45 Amphetamines Screen Negative (NEGATIVE) 09/13/19 14:45 Benzodiazepines Screen Negative (NEGATIVE) 09/13/19 14:45 Cocaine Screen Negative (NEGATIVE) 09/13/19 14:45 Ur THC Screen Negative (NEGATIVE) 09/13/19 14:45 Plasma/Serum Alcohol < 3 mg/dL (<3) 09/13/19 13:40 Medications List Reviewed: Yes Assessment & Plan - Problems (Diagnosis) (1) Altered mental status Current Visit: Yes Status: Acute (2) Alzheimer's dementia Current Visit: Yes Status: Acute Physician Review: Patient Assessed, Agree with Above Assessment and Plan Physician Review Additional Text: Dementia - still agitated and confused - c/w obs - increase seroquel -follow dc planning when placement available 09/17 still wandering around hospital -c/w 1:1 observation -c/w current regime with namenda/aricept /seroquel 12.5 tid -consider increase seroquel at pm to aid sleep # HTN -dc norvasc and start clonidine patch # DVT prop - ambulation and sc hep -awaiting placement Critical Care: No
[2019-09-18] MEDS ORDERED: QUETIAPINE 25 MG TAB PO SCH ×2 (12:00→15:00)
[2019-09-18] MEDS: DONEPEZIL HCL 5 MG TAB PO SCH (20:23)
[2019-09-18 23:04] VITALS: O2SAT 98
[2019-09-19] MEDS: ENSURE ENLIVE 237 ML CAN PO SCH ×2 (09:00→21:00)
[2019-09-19] MEDS: QUETIAPINE 25 MG TAB PO SCH ×2 (09:00→21:00)
[2019-09-19] MEDS: MEMANTINE HCL 10 MG TABLET PO SCH ×2 (09:01→21:28)
--- NOTE | 2019-09-19 14:24 | P.PN ---
Subjective Date of Service: 09/19/19 Chief Complaint: Altered mental status, Alzheimer's dementia. seen , awake , self feeding Physical Examination - Vital Signs Temperature: 97.4 F Blood Pressure: 129/78 Pulse: 75 Respirations: 18 Pulse Ox (%): 99 - Physical Exam General: Alert, In no apparent distress, Oriented x1, Demented HEENT: Atraumatic, Normocephalic Neck: 2+ carotid pulse no bruit, JVD not distended Respiratory: Clear to auscultation bilaterally, Normal air movement Cardiovascular: Normal pulses, Regular rate/rhythm Gastrointestinal: Normal bowel sounds, Soft and benign Neurological: Normal gait, Normal speech Other Physical/Emotional Findings: repeatedly moving away from me , refusing to talk . physical exam limited - Studies Medications List Reviewed: Yes Assessment & Plan - Problems (Diagnosis) (1) Altered mental status Current Visit: Yes Status: Acute (2) Alzheimer's dementia Current Visit: Yes Status: Acute Physician Review: Patient Assessed, Agree with Above Assessment and Plan Physician Review Additional Text: Dementia - more pleasant -awaitign placeemnt -c/w current seroquel dosage -i di/w with case mgt to talk to [facility] regarding placeemnt , may need APS involvement - 09/17 still wandering around hospital -c/w 1:1 observation -c/w current regime with namenda/aricept /seroquel 12.5 tid -consider increase seroquel at pm to aid sleep # HTN -improved , c/w clonidine patch # DVT prop - ambulation and sc hep -awaiting placement
--- NOTE | 2019-09-19 14:53 | CON ---
Subjective: The patient is a 73-year-old female with history of Dementia hospitalized via the ER on the September 13, 2019, on account of altered mental status. History indicates the patient was found wandering alone in the neighborhood and her neighbors contacted the apartment staff who on reaching patient's apartment noticed that the place was filthy and filled with clutter with the patient's kitten found decomposing in a box. ER lab and radiological investigations revealed no acute findings. Psychiatry services is consulted to evaluate the patient's capacity to make her medical decisions with regards to placement and medication management recommendation as the patient was observed to be agitated and difficult to redirect. On interview, the patient is a poor historian, she was not able to fully participate in the interview as patient grossly confused , Ms. Rogers who is a person of contact was contracted. She states the patient lives alone and was able to care for herself. She sates she was not aware that patient has dementia and could not remember when last she saw her. Ms. Rogers was unable to provide any significant collateral information regarding patient's history. Her other next of kin on file, could not be reached, who is also patient's sister. Laboratory investigation done in the ER indicates no significant findings. Urinalysis, culture and sensitivity did not show any evidence of UTI. CT scan of the brain did not indicate any acute findings, rather does show evidence of cerebral atrophy, Echocardiogram reveals sinus bradycardia with occasional premature ventricular complexes. No evidence of dehydration and no evidence of electrolyte imbalance. No history of seizure disorder was obtained. Objective: Vital Signs: Blood pressure 168/68, pulse rate 80, respiratory rate is 16, temperature is 97.0. Mental Status: Patient is a slim built female, dressed in a hospital gown, sitting on the chair and eating. Hair looks unkempt Not in any acute distress. She is alert and oriented to person only. Speech is incomprehensible at times most times. No self-injurious behavior noted. The patient was unable to fully participate with this examination. Impression: 1. Advanced dementia, Alzheimer's type with behavioral disturbance. 2. Delirium unspecified. Recommendations: Due to patient's poor cognitive functioning and history of dementia, it is my opinion that the patient is unable to make reasonable medical decisions hence recommend primary team to defer medical decision making process to next of kin on file Start the patient on Seroquel 12.5 mg p.o. t.i.d. for behavioral disturbance and agitation. Note hold for sedation. Restart patient's dementia medication Aricept 10 mg p.o. qhs, and Namenda 10 mg p.o. b.i.d. Discussed recommendation with patient's physician as well as the charge nurse. MAYO Voice ID: [id number] Report ID: [id number] MTDD
[2019-09-19] MEDS: DONEPEZIL HCL 5 MG TAB PO SCH (21:28)
[2019-09-20 07:45] VITALS: BP 128/78
[2019-09-20] MEDS: ENSURE ENLIVE 237 ML CAN PO SCH (09:00)
[2019-09-20] MEDS: QUETIAPINE 25 MG TAB PO SCH (09:00)
[2019-09-20] MEDS: MEMANTINE HCL 10 MG TABLET PO SCH (09:00)
[2019-09-20 09:49] VITALS: TEMP 97.1
--- NOTE | 2019-09-20 15:33 | P.PN ---
Subjective Date of Service: 09/20/19 Chief Complaint: Altered mental status, Alzheimer's dementia. Subjective: No new changes, No C/O voiced seen ,very confused this am ,refusing to talk to me or exam Review of Systems is unable to be obtained Physical Examination - Vital Signs Temperature: 97.1 F Blood Pressure: 128/78 Pulse: 77 Respirations: 19 Pulse Ox (%): 98 - Physical Exam General: Alert, In no apparent distress HEENT: Atraumatic, Normocephalic Neurological: Normal gait, Normal speech Other Physical/Emotional Findings: repeatedly moving away from me , refusing to talk . physical exam limited - Studies Medications List Reviewed: Yes Assessment & Plan - Problems (Diagnosis) (1) Altered mental status Current Visit: Yes Status: Acute (2) Alzheimer's dementia Current Visit: Yes Status: Acute Physician Review: Patient Assessed, Agree with Above Assessment and Plan Physician Review Additional Text: Dementia - still fluctuating confusion -increase seroquel to 37.5 mg bid now - still awaiting placement 09/19- d/w with case mgt to talk to family again regarding placement , may need APS involvement - 09/17 still wandering around hospital -c/w 1:1 observation -c/w current regime with namenda/aricept /seroquel 12.5 tid -consider increase seroquel at pm to aid sleep # HTN -controlled , c/w clonidine patch # DVT prop - ambulation and sc hep -awaiting placement
[2019-09-20] MEDS ORDERED: WATER FOR INJ,STERILE 10 ML IM PRN (15:49)
[2019-09-20] MEDS ORDERED: ZIPRASIDONE MESYLA 20 MG/VIAL IM ONE (16:00)
--- NOTE | 2019-09-20 16:13 | P.DS ---
Admission Date: 09/14/19 Discharge Date: 09/20/19 Disposition: TRANSFER TO CARE HOME Reason for Admission: Altered mental status, Alzheimer's dementia. - Problems (1) Altered mental status Current Visit: Yes Status: Acute (2) Alzheimer's dementia Current Visit: Yes Status: Acute Brief History of Present Illness: Patient with hx of dementia admitted for confusion and wandering Hospital Course: patient was noted with confusion which remain persistent during hospitalization . He continue to have fluctuating levels of confusion with occasional refusal of meds and meals . She has transient improvement in symptoms with seroquel but later held . she was noted with hypertension and started on clonidine patch . She will be transferred to [facility] inpatient facility today for continued care Vital Signs/Physical Exam: Temp Pulse Resp BP Pulse Ox 97.1 F 77 19 128/78 98 09/20/19 15:33 09/20/19 15:33 09/20/19 15:33 09/20/19 15:33 09/20/19 15:33 General: In no apparent distress, Demented, Confused HEENT: Atraumatic, Normocephalic, PERRLA Respiratory: Clear to auscultation bilaterally, Normal air movement Cardiovascular: Normal pulses, Regular rate/rhythm Gastrointestinal: Normal bowel sounds, Soft and benign Neurological: Dementia Other Physical/Emotional Findings: repeatedly moving away from me , refusing to talk . physical exam limited Laboratory Data at Discharge: WBC 2.8 K/uL (4.3-10.9) L D 09/18/19 03:48 Hgb 12.8 g/dL (12.0-15.0) 09/18/19 03:48 Hct 40.2 % (36.0-45.0) 09/18/19 03:48 Plt Count 152 K/uL (152-406) 09/18/19 03:48 PT 12.5 SECONDS (9.5-12.5) 09/13/19 13:40 INR 1.06 09/13/19 13:40 Sodium 142 mmol/L (136-145) 09/18/19 03:48 Potassium 4.0 mmol/L (3.5-5.1) 09/18/19 03:48 BUN 16 mg/dL (7-18) 09/18/19 03:48 Creatinine 0.63 mg/dL (0.55-1.3) 09/18/19 03:48 Glucose 97 mg/dL (74-106) 09/18/19 03:48 Magnesium 2.3 mg/dL (1.8-2.4) 09/13/19 13:40 Total Bilirubin 0.5 mg/dL (0.2-1.0) 09/18/19 03:48 AST 26 U/L (15-37) 09/18/19 03:48 ALT 23 U/L (12-78) 09/18/19 03:48 Alkaline Phosphatase 63 U/L (45-117) 09/18/19 03:48 Triglycerides 64 mg/dL (<150) 09/14/19 03:39 Cholesterol 168 mg/dL (<200) 09/14/19 03:39 HDL Cholesterol 71 mg/dL (40-60) H 09/14/19 03:39 Cholesterol/HDL Ratio 2.37 09/14/19 03:39 Home Medications: Cyanocobalamin (Vitamin B-12) [B-12] 3,000 mcg SL DAILY 09/13/19 Donepezil HCl 10 mg PO DAILY 09/13/19 Memantine HCl 10 mg PO BID 09/13/19 Clonidine Patch [Catapres-Tts 1*] 0.1 mg TD EVERY 7TH DAY #4 patch 09/20/19 New Medications: Clonidine Patch [Catapres-Tts 1*] 0.1 mg TD EVERY 7TH DAY #4 patch Diet: Regular Activity: Ad marcelo
[2019-09-20] MEDS ORDERED: QUETIAPINE 25 MG TAB PO SCH (21:00)
== END 2019-09-20 20:00 | DRG 57 ==
LOC: ER 12:33 → ERHOLD 19:43 → 4TH 20:17 → OBSVTOIN 09-14 19:12
PROVIDERS: ADMIT Hospitalist; ATTEND Hospitalist
DX: G30.8 Other Alzheimer's disease (principal); G93.40 Encephalopathy, unspecified; F02.81 Dementia in other diseases classified elsewhere, unspecified severity, with behavioral disturbance; F05 Delirium due to known physiological condition; R41.82 Altered mental status, unspecified; I10 Essential (primary) hypertension
CPT/HCPCS: 36415; 70450; 71045; 80048; 80053; 80061; 80076; 80307; 80320; 81003; 82947; 83735; 83880; 84443; 84484; 85025; 85610; 90471; 90670; 93005; 96374; 96375; 99285; G0378; J3411; J3486; J7030; J7040; Q2035

== ENCOUNTER 2019-09-23 06:25 | Emergency (ER) | payer OTHER ==
[2019-09-23] MEDS ORDERED: NA CHLORIDE 0.9% 1,000 ML ONE (06:49)
[2019-09-23] MEDS ORDERED: LORazepam 2 MG/ML VIAL ONE (06:49)
[2019-09-23 06:58] LABS: Absolute Lymphocytes (CBC) 0.7 K/uL (0.7-4.9); Basophils % 0.3 % (0-1.3); Lymphocytes % 12.3 % (15.3-44.8); MPV 8.1 fL (7.6-11.3); RBC Red Blood Cell Count 4.33 M/uL (3.86-4.86)
[2019-09-23 07:18] LABS: ALT/SGPT 32 U/L (12-78); AST/SGOT 34 U/L (15-37); Albumin 4.3 g/dL (3.4-5.0); Alkaline Phosphatase 72 U/L (45-117); BUN Blood Urea Nitrogen 22 mg/dL (7-18); Bicarbonate 27 mmol/L (21-32); Bilirubin Direct 0.2 mg/dL (0-0.2); Bilirubin Total 0.8 mg/dL (0.2-1.0); Glucose Level 135 mg/dL (74-106); Magnesium 2.1 mg/dL (1.8-2.4); NT PRO-BNP 185 pg/mL (<125); Potassium 3.5 mmol/L (3.5-5.1); Protein, Total 8.2 g/dL (6.4-8.2); Sodium Level 137 mmol/L (136-145); Troponin (Emerg Dept Use Only) < 0.02 ng/mL (0.0-0.045)
[2019-09-23] MEDS ORDERED: RISPERIDONE 1 MG TABLET PO ONE (08:00)
--- NOTE | 2019-09-23 08:19 | RAD REPORT ---
EXAM DESCRIPTION: Elva Single View09/23/2019 7:13 am CLINICAL HISTORY: Cough COMPARISON: September 13, 2019 FINDINGS: The lungs appear clear of acute infiltrate. The heart is normal size IMPRESSION: No acute abnormalities displayed
--- NOTE | 2019-09-23 09:00 | ER ---
Nurse's Notes [facility] Name: Loreta Tavera Age: 73 yrs Sex: Female : 1945 Arrival Date: 09/23/2019 Time: 06:32 Bed 3 Private MD: Diagnosis: Dementia in other diseases classified elsewhere;Urinary tract infection, site not specified Presentation: 09/23 06:32 Presenting complaint: EMS states: "We were called for the pt yelling and throwing stuff jd3 at the senior living staff. the senior living reported that she was altered. she has a history of dementia and Alzheimer's. we were able to middle [employer] football coach her over to the EMS stretcher at which point she stopped fighting and became more willing to work with us. by the time we got here she was smiling and laughing with us.". Transition of care: patient was received from another setting of care (long-term care facility), [facility]. Onset of symptoms was September 23, 2019. Risk Assessment: Do you want to hurt yourself or someone else? Patient reports no desire to harm self or others. Initial Sepsis Screen: Does the patient meet any 2 criteria? No. Patient's initial sepsis screen is negative. Does the patient have a suspected source of infection? No. Patient's initial sepsis screen is negative. Care prior to arrival: Glucose check: 148. 06:32 Method Of Arrival: EMS: [facility] jd3 06:32 Acuity: STACEY 2 jd3 Historical: - Allergies: 06:41 No Known Allergies; jd3 - Home Meds: 06:41 memantine 10 mg oral tab 1 tab 2 times per day [Active]; donepezil 10 mg oral tab 1 tab jd3 once daily [Active]; cyanocobalamin (vitamin B-12) 1,000 mcg oral tab 3 tab daily [Active]; - PMHx: 06:41 Alzheimers; Dementia; vitamin D deficiency; jd3 - PSHx: 06:41 Unable to obtain; jd3 - Immunization history:: Adult Immunizations up to date. - Social history:: Smoking status: unknown. - Family history:: not pertinent. - Ebola Screening: : Patient negative for fever greater than or equal to 101.5 degrees Fahrenheit, and additional compatible Ebola Virus Disease symptoms. Screenin:43 Abuse screen: Denies threats or abuse. Nutritional screening: No deficits noted. jd3 Tuberculosis screening: No symptoms or risk factors identified. Fall Risk Secondary diagnosis (15 points) Alzheimer's, dementia, Ambulatory Aid- None/Bed Rest/Nurse Assist (0 pts). Gait- Normal/Bed Rest/Wheelchair (0 pts) Mental Status- Overestimates/Forgets Limitations (15 pts.). Total Terrell Fall Scale indicates Low Risk Score (25-44 pts). Fall prevention measures have been instituted. Side Rails Up X 2 Placed close to Nursing Station Frequent Obs/Assesments occuring. Assessment: 06:42 General: Appears in no apparent distress. comfortable, Behavior is calm, cooperative, jd3 appropriate for age, restless. Pain: Denies pain. Neuro: Level of Consciousness is awake, alert, confused, Oriented to person. Cardiovascular: Denies chest pain, Capillary refill < 3 seconds Patient's skin is warm and dry. Respiratory: Airway is patent Respiratory effort is even, unlabored, Respiratory pattern is regular, symmetrical, Denies cough, shortness of breath. GI: No signs and/or symptoms were reported involving the gastrointestinal system. Patient currently denies nausea, vomiting. : No signs and/or symptoms were reported regarding the genitourinary system. EENT: No signs and/or symptoms were reported regarding the EENT system. Derm: Skin is intact, Skin is dry, Skin is normal, Skin temperature is warm. Musculoskeletal: Circulation, motion, and sensation intact. Range of motion: intact in all extremities. 07:14 Reassessment: Patient appears in no apparent distress at this time. Patient and/or ph family updated on plan of care and expected duration. Pain level reassessed. PT awake and alert, oriented to person only, sitting up in bed fidgeting w/ blankets, no distress noted, states, " He done lost his box but that's okay, I told him that we can get another one." Awaiting mediation from pharmacy, VSS. 08:30 Reassessment: Patient appears in no apparent distress at this time. Patient and/or ph family updated on plan of care and expected duration. Pain level reassessed. PT asleep w/ equal and unlabored respirations, VSS. 09:30 Reassessment: Patient appears in no apparent distress at this time. Patient and/or ph family updated on plan of care and expected duration. Pain level reassessed. Pt remains drowsy, straight cath urine sample obtained, pt tolerated well. 10:26 Reassessment: Patient appears in no apparent distress at this time. Patient and/or ph family updated on plan of care and expected duration. Pain level reassessed. Attempted to call report to [facility], spoke w/ Kacey who states, " There is a problem w/ her being d/c to us because she went crazy on staff and other residents and I am trying to get her placed in a psychiatric facility." States that she is waiting for a facility to call her back, " It's supposed to be in the next few hours and I'll call and let you know." Charge nurse notified, pt resting comfortably at this time. 10:36 Reassessment: Spoke with Niharika, Director of Case Management who states that [facility] needs to facilitate transfer from their facility after patient has bene medically cleared from ER standpoint. Patient has been resting peacefully with respirations even and unlabored and cooperative with all ED nursing staff during duration of stay thus far. Attempted to call [facility] which staff member stated that DON is in a meeting at this time and will call back as soon as she is out within the next 15-30 minute. 10:53 Reassessment: Kena with Case Management states that she spoke with CAIT at [facility] who states that they will not take patient back to the facility at this time because she is a "harm to other residents" and are still attempting to have patient transferred to psych facility. Will contact family. 11:21 Reassessment: Spoke with Person to notify, Sister Mari Jernigan, who states she is jl7 not well enough right now to make decisions regarding patient's care and will call her daughter now. Pt verbalizes concern and is unsure of situation prior to our phone call that senior living does not want to accept patient back at this time. 11:38 Reassessment: Spoke with Jayden CHAVIRA at [facility] regarding patient. I explained that the dm5 patient was up for discharge and needed to go back to the facility. That she was being discharged with new prescriptions that should help with the behaviors that they are seeing at their facility. Jayden stated that she cannot give the medication prescribed without certain diagnoses. I asked if the facility physician could do an assessment on the patient for those diagnosis as our physicians believe that she is just displaying signs of progression of her current diagnosis of dementia and a UTI. Jayden stated that the physicians only come to the facility once a week and would not come to see the resident on demand. Jayden states that she feels she will be hearing back from the Psych facility they are trying to transfer the patient to within an hour. I agreed to allow the patient to wait in the ED another hour and would call back. Jayden stated they would make a decision as to whether or not they could take the patient at that time. 13:04 Reassessment: Patient appears in no apparent distress at this time. Patient and/or ph family updated on plan of care and expected duration. Pain level reassessed. Pt remains asleep w/ equal and unlabored respirations, d/c pending update from [facility]. 13:10 Reassessment: Received call from Jayden at [facility] stating she received acceptance to a dm5 psych facility [facility] but the family didn't want the patient to go there. Spoke with the family and let her know that the patient could not stay in the ED if she did not want the patient to go to the psych facility she would need to come get the patient because [facility] would not take the patient back at there facility. Pt's family stated they were concerned that the patient stay at [facility] indefinitely. I told her I didn't know anything about that. Family wanted to speak with Cherri at [facility] again and would call me back. I called [facility] to give them an update on what I spoke with the family about and they said they needed a decision before 2pm because the patient needed to be at [facility] by 3:30pm for acceptance. Vital Signs: 06:41 BP 154 / 101; Pulse 109; Resp 16 S; Temp 97.2(A); Pulse Ox 99% on R/A; Weight 49.9 kg jd3 (R); Height 5 ft. 3 in. (160.02 cm) (R); Pain 0/10; 07:18 BP 142 / 87; Pulse 81; Resp 18; Pulse Ox 99% on R/A; ph 09:12 BP 138 / 78; Pulse 76; Resp 16; Pulse Ox 96% on R/A; ph 10:30 BP 127 / 76; Pulse 76; Resp 18; Pulse Ox 99% on R/A; ph 11:30 BP 140 / 87; Pulse 74; Resp 16; Pulse Ox 98% on R/A; ph 13:06 BP 138 / 78; Pulse 75; Resp 16; Pulse Ox 100% on R/A; ph 06:41 Body Mass Index 19.49 (49.90 kg, 160.02 cm) jd3 ED Course: 06:32 Patient arrived in ED. jd3 06:35 Eyad Chen MD is Attending Physician. sha 06:37 Triage completed. jd3 06:42 Arm band placed on. jd3 06:44 Patient has correct armband on for positive identification. Placed in gown. Bed in low jd3 position. Call light in reach. Side rails up X2. 06:45 Inserted saline lock: 22 gauge in left forearm, using aseptic technique. Blood jd3 collected. placed by [place]. 06:58 EKG done, by ED staff, reviewed by Eyad Chen MD. jd3 07:12 Charly Robledo, TOAN is Primary Nurse. rr5 07:13 XRAY Chest (1 view) In Process Unspecified. EDMS 09:40 Urine collected: straight cath specimen, brooks colored, Amount Returned: 350mL. ph Straight cath inserted, using sterile technique, 16 Fr. Returned brooks urine. Patient tolerated well. Administered Medications: 06:51 Drug: NS 0.9% 1000 ml Route: IV; Rate: 125 ml/hr; Site: left forearm; jd3 06:52 Drug: Ativan 1 mg Route: IVP; Site: left forearm; jd3 07:14 Follow up: Response: No adverse reaction rr5 09:34 Drug: RisperDAL 1 mg Route: PO; ss 09:41 Follow up: Response: No adverse reaction ph 10:06 Drug: Cipro 500 mg Route: PO; ph 10:06 Drug: Rocephin 1 grams Route: IV; Rate: per protocol; Site: left forearm; ph Outcome: 08:59 Discharge ordered by . sha 15:00 Patient left the ED. sg Signatures: Dispatcher [employer] EDNC Dolly Elizalde, TOAN JOYA dmLalo Leonardo RN RN Eyad Santiago MD MD cha Smirch, Shelby, RN RN ss Hall, Patricia, RN RN ph Bharti, Manav, RN RN jl7 Arslan Leyva, RN RN jd3 Charly Robledo, RN RN rr5 Corrections: (The following items were deleted from the chart) 07:00 06:45 Inserted saline lock: 22 gauge in left forearm, using aseptic technique. Blood jd3 collected. jd3 07:01 06:42 General: Appears in no apparent distress. comfortable, Behavior is calm, jd3 cooperative, appropriate for age, jd3 07:01 06:42 Neuro: Level of Consciousness is awake, alert, confused, Oriented to person, jd3 jd3 07:18 07:12 Reassessment: Patient appears in no apparent distress at this time. Patient ph and/or family updated on plan of care and expected duration. Pain level reassessed. Pt awake and alert, oriented to person only, no distress noted at this time, pt sitting up in fidgeting w/ blankets, denies pain at this time, states, " He done lost his box but that's okay, I told him we can get a new one." Awaiting medication form pharmacy, S rr5 10:42 10:36 Reassessment: Spoke with Nihraika, Director of Case Management who states that [facility] needs to facilitate transfer from their facility after patient has bene medically cleared from ER standpoint. Patient has been resting peacefully with respirations even and unlabored and cooperative with all ED nursing staff during duration of stay thus far.
--- NOTE | 2019-09-23 09:00 | EDPHYS ---
Physician Documentation [facility] Name: Loreta Tavera Age: 73 yrs Sex: Female : 1945 Arrival Date: 09/23/2019 Time: 06:32 Bed 3 Private MD: ED Physician Eyad Chen HPI: 09/23 06:39 This 73 yrs old Black Female presents to ER via EMS with complaints of combative.. sha 06:39 Onset: The symptoms/episode began/occurred 2 day(s) ago. Severity of symptoms: At their [facility] worst the symptoms were. The patient has not experienced similar symptoms in the past. Historical: - Allergies: 06:41 No Known Allergies; jd3 - Home Meds: 06:41 memantine 10 mg oral tab 1 tab 2 times per day [Active]; donepezil 10 mg oral tab 1 tab jd3 once daily [Active]; cyanocobalamin (vitamin B-12) 1,000 mcg oral tab 3 tab daily [Active]; - PMHx: 06:41 Alzheimers; Dementia; vitamin D deficiency; jd3 - PSHx: 06:41 Unable to obtain; jd3 - Immunization history:: Adult Immunizations up to date. - Social history:: Smoking status: unknown. - Family history:: not pertinent. - Ebola Screening: : Patient negative for fever greater than or equal to 101.5 degrees Fahrenheit, and additional compatible Ebola Virus Disease symptoms. ROS: 06:39 Constitutional: Negative for fever, chills, and weight loss, Eyes: Negative for injury, sha pain, redness, and discharge, ENT: Negative for injury, pain, and discharge, Neck: Negative for injury, pain, and swelling, Cardiovascular: Negative for chest pain, palpitations, and edema, Respiratory: Negative for shortness of breath, cough, wheezing, and pleuritic chest pain, Abdomen/GI: Negative for abdominal pain, nausea, vomiting, diarrhea, and constipation, Back: Negative for injury and pain, : Negative for injury, bleeding, discharge, and swelling, MS/Extremity: Negative for injury and deformity, Skin: Negative for injury, rash, and discoloration, Neuro: Negative for headache, weakness, numbness, tingling, and seizure, Allergy/Immunology: Negative for hives, rash, and allergies, Endocrine: Negative for neck swelling, polydipsia, polyuria, polyphagia, and marked weight changes, Hematologic/Lymphatic: Negative for swollen nodes, abnormal bleeding, and unusual bruising. 06:39 Psych: Positive for dementia. Exam: 06:39 Constitutional: This is a well developed, well nourished patient who is awake, alert, sha and in no acute distress. Head/Face: Normocephalic, atraumatic. Eyes: Pupils equal round and reactive to light, extra-ocular motions intact. Lids and lashes normal. Conjunctiva and sclera are non-icteric and not injected. Cornea within normal limits. Periorbital areas with no swelling, redness, or edema. ENT: Nares patent. No nasal discharge, no septal abnormalities noted. Tympanic membranes are normal and external auditory canals are clear. Oropharynx with no redness, swelling, or masses, exudates, or evidence of obstruction, uvula midline. Mucous membranes moist. Neck: Trachea midline, no thyromegaly or masses palpated, and no cervical lymphadenopathy. Supple, full range of motion without nuchal rigidity, or vertebral point tenderness. No Meningismus. Chest/axilla: Normal chest wall appearance and motion. Nontender with no deformity. No lesions are appreciated. Cardiovascular: Regular rate and rhythm with a normal S1 and S2. No gallops, murmurs, or rubs. Normal PMI, no JVD. No pulse deficits. Respiratory: Lungs have equal breath sounds bilaterally, clear to auscultation and percussion. No rales, rhonchi or wheezes noted. No increased work of breathing, no retractions or nasal flaring. Back: No spinal tenderness. No costovertebral tenderness. Full range of motion. Skin: Warm, dry with normal turgor. Normal color with no rashes, no lesions, and no evidence of cellulitis. MS/ Extremity: Pulses equal, no cyanosis. Neurovascular intact. Full, normal range of motion. Neuro: Awake and alert, GCS 15, oriented to person, place, time, and situation. Cranial nerves II-XII grossly intact. Motor strength 5/5 in all extremities. Sensory grossly intact. Cerebellar exam normal. Normal gait. Psych: Awake, alert, with orientation to person, place and time. Behavior, mood, and affect are within normal limits. 06:39 Abdomen/GI: Inspection: abdomen appears normal, Bowel sounds: normal, Palpation: nontender, in all quadrants. Vital Signs: 06:41 BP 154 / 101; Pulse 109; Resp 16 S; Temp 97.2(A); Pulse Ox 99% on R/A; Weight 49.9 kg jd3 (R); Height 5 ft. 3 in. (160.02 cm) (R); Pain 0/10; 07:18 BP 142 / 87; Pulse 81; Resp 18; Pulse Ox 99% on R/A; ph 09:12 BP 138 / 78; Pulse 76; Resp 16; Pulse Ox 96% on R/A; ph 10:30 BP 127 / 76; Pulse 76; Resp 18; Pulse Ox 99% on R/A; ph 11:30 BP 140 / 87; Pulse 74; Resp 16; Pulse Ox 98% on R/A; ph 13:06 BP 138 / 78; Pulse 75; Resp 16; Pulse Ox 100% on R/A; ph 06:41 Body Mass Index 19.49 (49.90 kg, 160.02 cm) jd3 MDM: 06:42 Data reviewed: vital signs, nurses notes, lab test result(s), EKG, radiologic studies, sha plain films. 06:50 Patient medically screened. [facility] 09/23 06:38 Order name: Basic Metabolic Panel; Complete Time: 08:08 [facility] 09/23 06:38 Order name: CBC with Diff; Complete Time: 08:08 [facility] 09/23 06:38 Order name: LFT's; Complete Time: 08:08 [facility] 09/23 06:38 Order name: Magnesium; Complete Time: 08:08 [facility] 09/23 06:38 Order name: NT PRO-BNP; Complete Time: 08:08 [facility] 09/23 06:38 Order name: Troponin (emerg Dept Use Only); Complete Time: 08:08 [facility] 09/23 06:38 Order name: XRAY Chest (1 view); Complete Time: 08:57 [facility] 09/23 06:38 Order name: Urine Culture [facility] 09/23 09:32 Order name: Urine Dipstick--Ancillary (enter results) em1 09/23 06:38 Order name: EKG; Complete Time: 06:39 [facility] 09/23 06:38 Order name: Cardiac monitoring; Complete Time: 06:50 [facility] 09/23 06:38 Order name: EKG - Nurse/Tech; Complete Time: 06:55 [facility] 09/23 06:38 Order name: IV Saline Lock; Complete Time: 06:50 [facility] 09/23 06:38 Order name: Labs collected and sent; Complete Time: 06:50 [facility] 09/23 06:38 Order name: O2 Per Protocol; Complete Time: 06:50 [facility] 09/23 06:38 Order name: O2 Sat Monitoring; Complete Time: 06:50 [facility] 09/23 06:38 Order name: Urine Dipstick-Ancillary (obtain specimen); Complete Time: 09:30 [facility] Administered Medications: 06:51 Drug: NS 0.9% 1000 ml Route: IV; Rate: 125 ml/hr; Site: left forearm; jd3 06:52 Drug: Ativan 1 mg Route: IVP; Site: left forearm; jd3 07:14 Follow up: Response: No adverse reaction [id number] 09:34 Drug: RisperDAL 1 mg Route: PO; ss 09:41 Follow up: Response: No adverse reaction ph 10:06 Drug: Cipro 500 mg Route: PO; ph 10:06 Drug: Rocephin 1 grams Route: IV; Rate: per protocol; Site: left forearm; ph Disposition: 09/23/19 08:59 Discharged to Home. Impression: Dementia in other diseases classified elsewhere, Urinary tract infection, site not specified. - Condition is Stable. - Discharge Instructions: Dementia, Urinary Tract Infection, Adult, Urinary Tract Infection, Adult, [id number], Dementia, [id number]. - Prescriptions for Risperdal 0.5 mg Oral tablet - take 2 tablet by ORAL route 2 times per day; 30 tablet. Cipro 250 mg Oral Tablet - take 1 tablet by ORAL route every 12 hours; 14 tablet. - Medication Reconciliation Form, Thank You Letter, Antibiotic Education, Prescription Opioid Use form. - Follow up: Private Physician; When: 2 - 3 days; Reason: Recheck today's complaints, Continuance of care, Re-evaluation by your physician. - Problem is new. - Symptoms have improved. Signatures: Dispatcher [employer] EDLalo Sunshine ph D, RN RN sg Anderson, Corey, MD MD cha Smirch, Shelby, RN RN ss Hall, Patricia, RN RNavies, Jonathon, RN RN jd3 Roque, Raymond RN [id number] Corrections: (The following items were deleted from the chart) 09:33 08:59 09/23/2019 08:59 Discharged to Home. Impression: Dementia in other diseases sha classified elsewhere. Condition is Stable. Discharge Instructions: Dementia, Dementia, [id number]. Prescriptions for Risperdal 0.5 mg Oral tablet - take 2 tablet by ORAL route 2 times per day; 30 tablet. and Forms are Medication Reconciliation Form, Thank You Letter, Antibiotic Education, Prescription Opioid Use. Follow up: Private Physician; When: 2 - 3 days; Reason: Recheck today's complaints, Continuance of care, Re-evaluation by your physician. Problem is new. Symptoms have improved. [facility] 15:00 09:33 09/23/2019 08:59 Discharged to Home. Impression: Dementia in other diseases sg classified elsewhere; Urinary tract infection, site not specified. Condition is Stable. Discharge Instructions: Dementia, Dementia, [id number]. Prescriptions for Risperdal 0.5 mg Oral tablet - take 2 tablet by ORAL route 2 times per day; 30 tablet. and Forms are Medication Reconciliation Form, Thank You Letter, Antibiotic Education, Prescription Opioid Use. Follow up: Private Physician; When: 2 - 3 days; Reason: Recheck today's complaints, Continuance of care, Re-evaluation by your physician. Problem is new. Symptoms have improved. sha
[2019-09-23 09:43] LABS: Urine Blood 2+ (NEG); Urine Glucose NEGATIVE (NEG); Urine Protein 3+ (NEG); Urine Specific Gravity >1.030 (1.005-1.030)
[2019-09-23] MEDS ORDERED: CEFTRIAXONE/SWI 1gm 1 GM/10 ML SYR ONE (09:56)
[2019-09-23] MEDS ORDERED: CIPROFLOXACIN HCL 500 MG TAB ONE (09:56)
[2019-09-23 15:10] VITALS: TEMP 97.2
[2019-09-23 15:17] VITALS: BP 138/78; O2SAT 100
--- NOTE | 2019-09-23 15:33 | EKG ---
Test Date: 2019-09-23 Test Time: 07:00:18 Real Estate Executive Assistant: RR MEASUREMENT RESULTS: Intervals: Rate: 99 UT: 164 QRSD: 76 QT: 368 QTc: 472 [place]: P: 61 UT: 164 QRS: -69 T: 59 INTERPRETIVE STATEMENTS: Normal sinus rhythm Right atrial enlargement Pulmonary disease pattern Left anterior fascicular block Abnormal ECG Compared to ECG 09/13/2019 16:29:41 Atrial abnormality now present Left anterior fascicular block now present Sinus bradycardia no longer present Ventricular premature complex(es) no longer present Electronically Signed On 09-23-19 15:31:01 [employer]OZE CUTTER HELPER by Janusz Dumont
== END 2019-09-23 15:00 | disposition home or self-care (01) ==
LOC: ER 06:25
DX: G30.9 Alzheimer's disease, unspecified (principal); F02.81 Dementia in other diseases classified elsewhere, unspecified severity, with behavioral disturbance; N39.0 Urinary tract infection, site not specified
CPT/HCPCS: 93005; 87088; 85025; 87086; 80048; 36415; 83735; 80076; 87077; 87186; 81003; 84484; 83880; 71045; 51702; 96375; 96374; 99284; J0696; J7030